=== PATIENT | female | born 2000 ===

== ENCOUNTER 2019-01-13 20:25 | Emergency (ER) | payer MEDICAID ==
[2019-01-13 20:50] VITALS: BP 102/60
[2019-01-13] MEDS ORDERED: TYLENOL PO ONE (21:49)
[2019-01-13] MEDS ORDERED: TYLENOL ONE (21:52)
--- NOTE | 2019-01-13 21:54 | Emergency Department Report ---
Blank Doc - Documentation Documentation: 18 year old female c/o sore throat times 3 day. Ear pain. G1 10 weeks.
== END 2019-01-14 02:30 | disposition left against medical advice (07) ==
LOC: ED 20:25
DX: J02.9 Acute pharyngitis, unspecified (principal); Z53.21 Procedure and treatment not carried out due to patient leaving prior to being seen by health care provider
CPT/HCPCS: 87430